=== PATIENT | male | born 1960 | race Caucasian/White ===

== ENCOUNTER 2017-02-10 22:25 | Emergency (ER) | payer MEDICAID ==
[~2017-02-10] VITALS: Ht 177.8 cm; Wt 80.0 kg
[2017-02-10 22:38] VITALS: BP 130/93
== END 2017-02-10 23:25 | disposition home or self-care (01) ==
LOC: ED 23:20
DX: F10.120 Alcohol abuse with intoxication, uncomplicated (principal)
CPT/HCPCS: 99283

== ENCOUNTER 2017-02-19 06:40 | Emergency (ER) | payer MEDICAID ==
[~2017-02-19] VITALS: Ht 175.3 cm; Wt 82.2 kg
[2017-02-19 06:42] VITALS: BP 110/66
== END 2017-02-19 07:30 | disposition home or self-care (01) ==
LOC: ED 07:24
DX: J30.2 Other seasonal allergic rhinitis (principal)
CPT/HCPCS: 99283

== ENCOUNTER 2017-03-09 13:33 | Emergency (ER) | payer MEDICAID ==
[~2017-03-09] VITALS: Ht 175.3 cm; Wt 80.1 kg
[2017-03-09 13:35] VITALS: BP 124/86
== END 2017-03-09 14:04 | disposition home or self-care (01) ==
LOC: ED 13:58
DX: S01.01XD Laceration without foreign body of scalp, subsequent encounter (principal); X58.XXXA Exposure to other specified factors, initial encounter; Y93.89 Activity, other specified; Y92.89 Other specified places as the place of occurrence of the external cause; Y99.8 Other external cause status
CPT/HCPCS: 99281

== ENCOUNTER 2017-06-01 08:15 | Emergency (ER) | payer MEDICAID ==
[~2017-06-01] VITALS: Ht 175.3 cm; Wt 77.5 kg
[2017-06-01 10:29] VITALS: BP 114/73
== END 2017-06-01 10:30 | disposition home or self-care (01) ==
LOC: ED 09:13
DX: M25.552 Pain in left hip (principal)
CPT/HCPCS: 99284

== ENCOUNTER 2017-10-01 13:04 | Emergency (ER) | payer MEDICAID ==
[~2017-10-01] VITALS: Ht 182.9 cm; Wt 108.4 kg
[2017-10-01 21:19] VITALS: BP 94/77
== END 2017-10-01 22:16 | disposition home or self-care (01) ==
LOC: ED 18:01
DX: F10.220 Alcohol dependence with intoxication, uncomplicated (principal); I10 Essential (primary) hypertension
CPT/HCPCS: 99283

== ENCOUNTER 2017-10-25 08:36 | Emergency (ER) | payer MEDICAID ==
[~2017-10-25] VITALS: Ht 175.3 cm; Wt 77.0 kg
[2017-10-25 08:38] VITALS: BP 103/80
== END 2017-10-25 10:45 | disposition home or self-care (01) ==
LOC: ED 09:10
DX: F10.220 Alcohol dependence with intoxication, uncomplicated (principal); I10 Essential (primary) hypertension
CPT/HCPCS: 99283

== ENCOUNTER 2018-11-24 07:57 | Emergency (ER) | payer MEDICAID ==
[~2018-11-24] VITALS: Ht 175.3 cm; Wt 80.0 kg
[2018-11-24 08:09] VITALS: BP 116/80
--- NOTE | 2018-11-24 08:49 | NUR ---
REPORT FROM DUANE BETANCOURT. ASSUMED CARE OF PATIENT AT THIS TIME.
--- NOTE | 2018-11-24 09:05 | NUR ---
Patient/Caregiver given discharge instructions and they have confirmed that they understand the instructions. Patient ambulatory with steady gait. Addendum: 11/24/18 at 0906 by LISETTE Amendment undone in EDM - 11/24/18 at 0914 by LISETTE Patient ambulatory with steady gait with crutches, demonstrates proper crutch use.
== END 2018-11-24 09:08 | disposition home or self-care (01) ==
LOC: ED 09:00
DX: K02.9 Dental caries, unspecified (principal); K04.6 Periapical abscess with sinus; I10 Essential (primary) hypertension
CPT/HCPCS: 41800; 99283

== ENCOUNTER 2019-05-01 14:14 | Emergency (ER) | payer MEDICAID ==
[~2019-05-01] VITALS: Ht 175.3 cm; Wt 82.0 kg
[2019-05-01 14:16] VITALS: BP 103/69
--- NOTE | 2019-05-01 14:57 | NUR ---
R UPPER ARM ABSCESS COVERED WITH GAUZE AND KERLIX DRESSING D/T DRAINAGE. D/C INSTRUCTIONS, MEDS & F/U APPT RV'WD WITH PT, HE VERBALIZES UNDERSTANDING. RX GIVEN X3. INSTRUCTED PT TO RETURN TO ED IF NOT IMPROVING. PT AMBULATED OUT OF ED WITHOUT DIFFICULTY.
== END 2019-05-01 15:01 | disposition home or self-care (01) ==
LOC: ED 14:45
DX: L02.413 Cutaneous abscess of right upper limb (principal); I10 Essential (primary) hypertension
CPT/HCPCS: 99283

== ENCOUNTER 2019-05-02 18:56 | Emergency (ER) | payer MEDICAID ==
[2019-05-02 18:59] VITALS: BP 114/72
--- NOTE | 2019-05-02 19:34 | NUR ---
PT HERE FOR LEFT HAND PAIN WITH CRAMPING. LOCALIZED TO HAND ONLY.
[2019-05-02 20:31] LABS: ALBUMIN 3.1 g/dL (3.4-5.0); ANION GAP 6 mmol/L (5-15); CALCIUM 8.6 mg/dL (8.5-10.1); CHLORIDE 102 mmol/L (98-107); CREATININE 1.13 mg/dL (0.7-1.3)
[2019-05-02 20:58] LABS: BASOPHILS # (AUTO) 0.07 x10^3/uL (0-0.1); BASOPHILS % (AUTO) 1 % (0-1); EOSINOPHILS % (AUTO) 1 % (1-7); LYMPHOCYTES # (AUTO) 1.33 x10^3/uL (1-3.4); LYMPHOCYTES % (AUTO) 18 % (22-44); MD NO; MEAN CORPUSCULAR HEMOGLOBIN 33.2 pg (27.5-34.5); MEAN CORPUSCULAR HGB CONC 34.3 g/dL (33.2-36.2); MEAN CORPUSCULAR VOLUME 96.6 fL (81-97); MEAN PLATELET VOLUME 7.5 fL (7.4-10.4); MONOCYTES # (AUTO) 0.63 x10^3/uL (0.2-0.8); MONOCYTES % (AUTO) 8 % (2-9); NEUTROPHILS % (AUTO) 72 % (42-75); PLATELET COUNT 237 x10^3/uL (130-400); RED BLOOD COUNT 4.36 x10^6/uL (4.38-5.82); RED CELL DISTRIBUTION WIDTH 13.9 % (9.4-14.8)
--- NOTE | 2019-05-02 21:39 | NUR ---
Patient/Caregiver given discharge instructions and they have confirmed that they understand the instructions. Patient ambulatory with steady gait.
== END 2019-05-02 21:41 | disposition home or self-care (01) ==
LOC: ED 21:39
DX: L03.113 Cellulitis of right upper limb (principal); M79.642 Pain in left hand; I10 Essential (primary) hypertension
CPT/HCPCS: 36415; 80048; 82040; 85025; 99284

== ENCOUNTER 2019-06-20 08:00 | Emergency (ER) | payer MEDICAID ==
[~2019-06-20] VITALS: Ht 175.3 cm; Wt 79.0 kg
[2019-06-20 08:16] VITALS: BP 124/88
== END 2019-06-20 09:53 | disposition home or self-care (01) ==
LOC: ED 09:48
DX: K04.7 Periapical abscess without sinus (principal); I10 Essential (primary) hypertension
CPT/HCPCS: 41800; 99283

== ENCOUNTER 2020-01-18 15:00 | Emergency (ER) | payer MEDICAID ==
[~2020-01-18] VITALS: Ht 175.3 cm; Wt 78.0 kg
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
[2020-01-18] MEDS ORDERED: LORazepam 2 MG/ML, 1ML IVPush ONE (16:00)
[2020-01-18] MEDS ORDERED: SODIUM CHLORIDE FLUSH 10ML SYR IVF ONE (16:00)
[2020-01-18] MEDS ORDERED: THIAMINE 100MG TABLET PO ONE (16:00)
[2020-01-18] MEDS ORDERED: LORazepam 2 MG/ML, 1ML ONE (16:17)
--- NOTE | 2020-01-18 16:24 | NUR ---
requested vitamin b from pharmacy.
[2020-01-18 16:38] LABS: ALANINE AMINOTRANSFERASE 84 U/L (12-78); ANION GAP 11 mmol/L (5-15); CALCIUM 8.8 mg/dL (8.5-10.1); CHLORIDE 101 mmol/L (98-107); CREATININE 1.01 mg/dL (0.7-1.3)
[2020-01-18 16:40] LABS: ALKALINE PHOSPHATASE 51 U/L (45-117); BILIRUBIN,TOTAL 1.2 mg/dL (0.2-1.0); TOTAL PROTEIN 7.8 g/dL (6.4-8.2)
[2020-01-18] MEDS ORDERED: SODIUM CHLORIDE 0.9% 1,000ML IVBOLUS ONE (17:00)
[2020-01-18 17:13] LABS: BASOPHILS # (AUTO) 0.02 x10^3/uL (0-0.1); BASOPHILS % (AUTO) 1 % (0-1); EOSINOPHILS # (AUTO) 0.01 x10^3/uL (0-0.4); EOSINOPHILS % (AUTO) 0 % (1-7); LYMPHOCYTES # (AUTO) 0.42 x10^3/uL (1-3.4); LYMPHOCYTES % (AUTO) 9 % (22-44); MD SCAN; MEAN CORPUSCULAR HEMOGLOBIN 31.3 pg (27.5-34.5); MEAN CORPUSCULAR HGB CONC 34.4 g/dL (33.2-36.2); MEAN CORPUSCULAR VOLUME 90.9 fL (81-97); MEAN PLATELET VOLUME 7.6 fL (7.4-10.4); MONOCYTES # (AUTO) 0.43 x10^3/uL (0.2-0.8); MONOCYTES % (AUTO) 9 % (2-9); NEUTROPHILS # (AUTO) 3.84 x10^3/uL (1.8-6.8); NEUTROPHILS % (AUTO) 82 % (42-75); PLATELET COUNT 65 x10^3/uL (130-400); RED CELL DISTRIBUTION WIDTH 16.8 % (9.4-14.8)
[2020-01-18 18:05] VITALS: BP 133/78
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
== END 2020-01-18 18:34 | disposition home or self-care (01) ==
LOC: ED 18:25
DX: R56.9 Unspecified convulsions (principal); F10.20 Alcohol dependence, uncomplicated; I44.4 Left anterior fascicular block; Y90.9 Presence of alcohol in blood, level not specified
CPT/HCPCS: 36415; 70450; 80053; 80307; 85025; 93005; 99285; J7030

== ENCOUNTER 2020-02-02 21:18 | Emergency (ER) | payer MEDICAID ==
[~2020-02-02] VITALS: Ht 175.3 cm; Wt 75.0 kg
[2020-02-02 21:22] VITALS: BP 137/86
== END 2020-02-02 22:34 | disposition left against medical advice (07) ==
LOC: ED 21:40
DX: F10.220 Alcohol dependence with intoxication, uncomplicated (principal); Y90.9 Presence of alcohol in blood, level not specified; I10 Essential (primary) hypertension
CPT/HCPCS: 99283

== ENCOUNTER 2020-02-05 16:10 | Emergency (ER) | payer MEDICAID ==
[~2020-02-05] VITALS: Ht 175.3 cm; Wt 79.5 kg
[2020-02-05 16:18] VITALS: BP 139/94
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
--- NOTE | 2020-02-05 16:41 | NUR ---
ERP WAS IN TO SEE PT. PT AMBULATED TO WITH 2 PERSON ASSIST. PT RESTLESS, CONSTANTLY PULLING AT IV AND MOANING. WARM BLANKETS PROVIDED. RV'WD POC WITH PT, RE-ORIENTED PT. Addendum: 02/05/20 at 1657 by HBENSON PT VOIDED IN TOILET, UNABLE TO COLLECT URINE SPECIMEN.
[2020-02-05 16:50] LABS: BASOPHILS # (AUTO) 0.04 x10^3/uL (0-0.1); BASOPHILS % (AUTO) 1 % (0-1); EOSINOPHILS # (AUTO) 0.05 x10^3/uL (0-0.4); EOSINOPHILS % (AUTO) 1 % (1-7); LYMPHOCYTES # (AUTO) 2.97 x10^3/uL (1-3.4); LYMPHOCYTES % (AUTO) 41 % (22-44); MD NO; MEAN CORPUSCULAR HEMOGLOBIN 31.1 pg (27.5-34.5); MEAN CORPUSCULAR HGB CONC 33.5 g/dL (33.2-36.2); MEAN CORPUSCULAR VOLUME 92.7 fL (81-97); MEAN PLATELET VOLUME 6.8 fL (7.4-10.4); MONOCYTES % (AUTO) 6 % (2-9); NEUTROPHILS # (AUTO) 3.88 x10^3/uL (1.8-6.8); NEUTROPHILS % (AUTO) 53 % (42-75); PLATELET COUNT 323 x10^3/uL (130-400); RED BLOOD COUNT 5.47 x10^6/uL (4.38-5.82); RED CELL DISTRIBUTION WIDTH 16.7 % (9.4-14.8)
[2020-02-05 17:01] LABS: ALANINE AMINOTRANSFERASE 58 U/L (12-78); ALBUMIN 3.7 g/dL (3.4-5.0); ANION GAP 6 mmol/L (5-15); CALCIUM 8.1 mg/dL (8.5-10.1); CHLORIDE 107 mmol/L (98-107); CREATININE 0.86 mg/dL (0.7-1.3)
[2020-02-05 17:05] LABS: ALKALINE PHOSPHATASE 63 U/L (45-117); BILIRUBIN,TOTAL 0.3 mg/dL (0.2-1.0); TOTAL PROTEIN 7.7 g/dL (6.4-8.2)
--- NOTE | 2020-02-05 17:12 | NUR ---
PT RESTING QUIETLY IN [place], BREATHING WNL.
--- NOTE | 2020-02-05 19:00 | NUR ---
PT ABLE TO AMBULATE OUT OF ED, STATES HE WILL GO BACK TO [facility].
== END 2020-02-05 19:40 | disposition home or self-care (01) ==
LOC: ED 16:45
DX: F10.220 Alcohol dependence with intoxication, uncomplicated (principal); R94.31 Abnormal electrocardiogram [ECG] [EKG]; I10 Essential (primary) hypertension; Z98.52 Vasectomy status; Y90.9 Presence of alcohol in blood, level not specified
CPT/HCPCS: 36415; 80053; 80307; 85025; 93005; 99284

== ENCOUNTER 2020-03-12 01:48 | Emergency (ER) | payer MEDICAID ==
[~2020-03-12] VITALS: Ht 175.3 cm; Wt 85.0 kg
[2020-03-12 02:12] VITALS: BP 95/51
--- NOTE | 2020-03-12 02:28 | NUR ---
Patient BIB [facility]; passersby called; patient was found down outside. ALOC. Patient admits to drinking an unknown amount of alcohol.
--- NOTE | 2020-03-12 02:38 | NUR ---
Patient ate sandwich and is now sleeping. Respirations even and unlabored.
--- NOTE | 2020-03-12 03:42 | NUR ---
Patient sleeping in gurney. Respirations even and unlabored.
--- NOTE | 2020-03-12 04:32 | NUR ---
Patient sleeping in gurney. Respirations even and unlabored.
--- NOTE | 2020-03-12 06:33 | NUR ---
Patient awoke and AAOx4, GCS 15. Patient ambulatory with a steady gait.
== END 2020-03-12 06:35 | disposition home or self-care (01) ==
LOC: ED 02:08
DX: F10.129 Alcohol abuse with intoxication, unspecified (principal); I44.0 Atrioventricular block, first degree; R94.31 Abnormal electrocardiogram [ECG] [EKG]; I10 Essential (primary) hypertension; Z90.89 Acquired absence of other organs; Y90.9 Presence of alcohol in blood, level not specified
CPT/HCPCS: 93005; 99283

== ENCOUNTER 2020-04-10 17:25 | Inpatient (IN) | payer MEDICAID ==
[~2020-04-10] VITALS: Ht 175.3 cm; Wt 76.3 kg
--- NOTE | 2020-04-10 18:29 | NUR ---
PT GIVEN BLANKETS. PT ON MONITOR, IV ESTABLISEHD AND IVF STARTED.
[2020-04-10] MEDS ORDERED: SODIUM CHLORIDE 0.9% 1,000ML IVBOLUS ONE (18:30)
[2020-04-10] MEDS ORDERED: SODIUM CHLORIDE FLUSH 10ML SYR IVF ONE (18:30)
[2020-04-10 18:35] LABS: MEAN CORPUSCULAR HEMOGLOBIN 32.2 pg (27.5-34.5); MEAN CORPUSCULAR HGB CONC 33.5 g/dL (33.2-36.2); MEAN CORPUSCULAR VOLUME 96.3 fL (81-97); MEAN PLATELET VOLUME 7.2 fL (7.4-10.4); PLATELET COUNT 111 x10^3/uL (130-400); RED BLOOD COUNT 4.73 x10^6/uL (4.38-5.82); RED CELL DISTRIBUTION WIDTH 14.7 % (9.4-14.8)
[2020-04-10 18:45] LABS: ALBUMIN 3.4 g/dL (3.4-5.0); ANION GAP 11 mmol/L (5-15); CALCIUM 8.9 mg/dL (8.5-10.1); CHLORIDE 98 mmol/L (98-107); CREATININE 0.92 mg/dL (0.7-1.3)
[2020-04-10 19:09] LABS: MD YES
[2020-04-10 19:11] LABS: LYMPH#(MANUAL) 1.31 x10^3/uL (1-3.4); LYMPHS% (MANUAL) 9 % (22-44); MONOS#(MANUAL) 0.73 x10^3/uL (0.3-2.7); MONOS% (MANUAL) 5 % (2-9)
[2020-04-10 19:12] LABS: <RBC MORPHOLOGY> NORMAL
[2020-04-10 19:13] LABS: <PLATELET ESTIMATE> DECREASED; <PLT MORPHOLOGY> NORMAL PLT MORPH; BAND#(MANUAL) 1.45 x10^3/uL; BANDS%(MANUAL) 10 % (0-7); SEGS% (MANUAL) 76 % (42-75)
[2020-04-10] MEDS ORDERED: LIDOCAINE 1%, 10ML INFIL ONE (20:00)
[2020-04-10] MEDS ORDERED: LIDOCAINE-MPF 1%, 5ML ONE ×2 (20:03→20:58)
--- NOTE | 2020-04-10 20:21 | NUR ---
PT RESTING ON BLANCA MEJIA IN PLACE. LAB IN ROOM DRAWING X2 CULTURES AT THIS TIME. PT UPDATED ON POC. WATER PROVIDED.
[2020-04-10] MEDS ORDERED: MORPHINE SULFATE 4 MG/ML, 1ML ONE (20:42)
[2020-04-10] MEDS ORDERED: ONDANSETRON 2MG/ML, 2ML ONE (20:42)
[2020-04-10] MEDS ORDERED: MORPHINE SULFATE 4 MG/ML, 1ML IVPush PRN (21:00)
[2020-04-10] MEDS ORDERED: ONDANSETRON 2MG/ML, 2ML IVPush ONE (21:00)
[2020-04-10] MEDS ORDERED: CEFTRIAXONE PMX 1GM/50ML 50 ML ONE (21:17)
[2020-04-10] MEDS ORDERED: CEFTRIAXONE PMX 1GM/50ML 50 ML IV ONE (21:30)
[2020-04-10] MEDS ORDERED: SODIUM CHLORIDE FLUSH 10ML SYR IVF PRN (22:00)
[2020-04-10] MEDS ORDERED: ONDANSETRON ODT 4 MG PO PRN (23:00)
[2020-04-10] MEDS ORDERED: POLYETHYLENE GLYCOL 17 GM PACKET PO PRN (23:00)
[2020-04-10] MEDS ORDERED: BISACODYL 10 MG SUPP PR PRN (23:00)
--- NOTE | 2020-04-10 23:01 | NUR ---
FIRST ATTEMPT TO CALL REPORT
[2020-04-10] MEDS: AMPICILLIN/SULBACTAM 3 GM in SODIUM CHLORIDE 0.9% 100 ML IV SCH (23:05)
[2020-04-10] MEDS: SODIUM CHLORIDE 0.9% 1,000 ML IV SCH (23:16)
[2020-04-11 00:06] VITALS: BP 127/79
[2020-04-11] MEDS: HEPARIN 5,000 UNITS/ML, 1ML SQ SCH ×3 (00:19→16:08)
[2020-04-11] MEDS: AMPICILLIN/SULBACTAM 3 GM in SODIUM CHLORIDE 0.9% 100 ML IV SCH ×4 (05:23→23:08)
[2020-04-11 06:43] LABS: ANION GAP 11 mmol/L (5-15); CALCIUM 7.8 mg/dL (8.5-10.1); CHLORIDE 100 mmol/L (98-107)
[2020-04-11 06:45] LABS: CREATININE 0.83 mg/dL (0.7-1.3)
[2020-04-11 07:57] LABS: MEAN CORPUSCULAR HEMOGLOBIN 32.2 pg (27.5-34.5); MEAN CORPUSCULAR VOLUME 94.7 fL (81-97); RED BLOOD COUNT 4.32 x10^6/uL (4.38-5.82); RED CELL DISTRIBUTION WIDTH 14.4 % (9.4-14.8)
[2020-04-11 08:01] LABS: MD YES
[2020-04-11 08:02] LABS: BAND#(MANUAL) 1.67 x10^3/uL; BANDS%(MANUAL) 14 % (0-7); LYMPH#(MANUAL) 1.31 x10^3/uL (1-3.4); LYMPHS% (MANUAL) 11 % (22-44); MONOS#(MANUAL) 0.48 x10^3/uL (0.3-2.7); MONOS% (MANUAL) 4 % (2-9); SEG#(MANUAL) 8.45 x10^3/uL (1.8-6.8); SEGS% (MANUAL) 71 % (42-75)
[2020-04-11 08:07] LABS: <PLATELET ESTIMATE> DECREASED; <PLT MORPHOLOGY> NORMAL PLT MORPH; <RBC MORPHOLOGY> NORMAL
[2020-04-11 08:08] LABS: MEAN PLATELET VOLUME 8.2 fL (7.4-10.4); PLATELET COUNT 79 x10^3/uL (130-400)
[2020-04-11 08:11] VITALS: BP 110/71
[2020-04-11] MEDS: SODIUM CHLORIDE 0.9% 1,000 ML IV SCH ×2 (08:14→16:07)
[2020-04-11] MEDS: SENNA/DOCUSATE TABLET PO SCH (08:20)
[2020-04-11] MEDS: POTASSIUM CHLORIDE 20 MEQ TAB.ER.PRT PO SCH ×2 (09:14→17:20)
[2020-04-11 12:37] VITALS: BP 124/75
[2020-04-11 18:54] VITALS: BP 120/68
[2020-04-11] MEDS: OXYcodone IR 5MG TABLET PO PRN (21:42)
[2020-04-12 00:15] VITALS: BP 116/74
[2020-04-12] MEDS: HEPARIN 5,000 UNITS/ML, 1ML SQ SCH ×4 (00:26→23:09)
[2020-04-12] MEDS: SODIUM CHLORIDE 0.9% 1,000 ML IV SCH ×3 (01:16→22:22)
[2020-04-12] MEDS: AMPICILLIN/SULBACTAM 3 GM in SODIUM CHLORIDE 0.9% 100 ML IV SCH ×4 (05:45→23:06)
[2020-04-12 06:19] LABS: ANION GAP 6 mmol/L (5-15); CALCIUM 7.7 mg/dL (8.5-10.1); CHLORIDE 105 mmol/L (98-107); CREATININE 0.76 mg/dL (0.7-1.3)
[2020-04-12 06:25] LABS: MEAN CORPUSCULAR HEMOGLOBIN 32.2 pg (27.5-34.5); MEAN CORPUSCULAR VOLUME 94.7 fL (81-97); MEAN PLATELET VOLUME 7.6 fL (7.4-10.4); PLATELET COUNT 77 x10^3/uL (130-400); RED BLOOD COUNT 3.86 x10^6/uL (4.38-5.82); RED CELL DISTRIBUTION WIDTH 14.1 % (9.4-14.8)
[2020-04-12 06:59] VITALS: BP 129/78
[2020-04-12 07:04] LABS: BASOPHILS # (AUTO) 0.03 x10^3/uL (0-0.1); BASOPHILS % (AUTO) 0 % (0-1); EOSINOPHILS # (AUTO) 0.02 x10^3/uL (0-0.4); EOSINOPHILS % (AUTO) 0 % (1-7); LYMPHOCYTES # (AUTO) 1.11 x10^3/uL (1-3.4); LYMPHOCYTES % (AUTO) 13 % (22-44); MD SCAN; MONOCYTES # (AUTO) 0.51 x10^3/uL (0.2-0.8); MONOCYTES % (AUTO) 6 % (2-9); NEUTROPHILS # (AUTO) 7.12 x10^3/uL (1.8-6.8); NEUTROPHILS % (AUTO) 81 % (42-75)
[2020-04-12] MEDS: SENNA/DOCUSATE TABLET PO SCH (08:11)
[2020-04-12 14:36] VITALS: BP 117/78
[2020-04-12] MEDS ORDERED: GADOTERATE 10 MMOL/20 ML SYR ONE (16:41)
[2020-04-13 02:45] VITALS: BP 123/60
[2020-04-13] MEDS: AMPICILLIN/SULBACTAM 3 GM in SODIUM CHLORIDE 0.9% 100 ML IV SCH ×4 (05:08→23:31)
[2020-04-13 06:16] LABS: BASOPHILS # (AUTO) 0.03 x10^3/uL (0-0.1); BASOPHILS % (AUTO) 0 % (0-1); EOSINOPHILS # (AUTO) 0.07 x10^3/uL (0-0.4); EOSINOPHILS % (AUTO) 1 % (1-7); LYMPHOCYTES # (AUTO) 1.21 x10^3/uL (1-3.4); LYMPHOCYTES % (AUTO) 12 % (22-44); MD NO; MEAN CORPUSCULAR HEMOGLOBIN 31.8 pg (27.5-34.5); MEAN CORPUSCULAR HGB CONC 33.3 g/dL (33.2-36.2); MEAN CORPUSCULAR VOLUME 95.4 fL (81-97); MONOCYTES # (AUTO) 0.82 x10^3/uL (0.2-0.8); MONOCYTES % (AUTO) 8 % (2-9); NEUTROPHILS # (AUTO) 8.14 x10^3/uL (1.8-6.8); NEUTROPHILS % (AUTO) 79 % (42-75); PLATELET COUNT 130 x10^3/uL (130-400); RED CELL DISTRIBUTION WIDTH 14.4 % (9.4-14.8)
[2020-04-13] MEDS: SODIUM CHLORIDE 0.9% 1,000 ML IV SCH (06:27)
[2020-04-13] MEDS ORDERED: POTASSIUM CHLORIDE 20 MEQ TAB.ER.PRT PO ONE (06:30)
[2020-04-13 06:48] VITALS: BP 130/83
[2020-04-13] MEDS: HEPARIN 5,000 UNITS/ML, 1ML SQ SCH ×3 (08:40→23:31)
[2020-04-13] MEDS: SENNA/DOCUSATE TABLET PO SCH (08:40)
[2020-04-13] MEDS ORDERED: CALCIUM CARBONATE 500 MG TAB.CHEW PO SCH (09:00)
[2020-04-13] MEDS: ACETAMINOPHEN 325 MG TABLET PO PRN ×2 (11:22→19:59)
[2020-04-13 12:48] VITALS: BP 119/82
[2020-04-13 19:31] VITALS: BP 130/81
[2020-04-14 01:38] VITALS: BP 112/78
[2020-04-14] MEDS: KETOROLAC 30 MG/1 ML IV PRN ×2 (04:17→19:11)
[2020-04-14] MEDS: AMPICILLIN/SULBACTAM 3 GM in SODIUM CHLORIDE 0.9% 100 ML IV SCH ×4 (05:13→23:05)
[2020-04-14 05:57] LABS: HCT (SEDRATE) 40.6 % (39.2-51.8)
[2020-04-14 06:37] VITALS: BP 114/77
[2020-04-14] MEDS: SENNA/DOCUSATE TABLET PO SCH (08:00)
[2020-04-14] MEDS: HEPARIN 5,000 UNITS/ML, 1ML SQ SCH ×3 (08:00→23:05)
[2020-04-14 12:31] VITALS: BP 110/81
[2020-04-14 20:16] VITALS: BP 101/67
[2020-04-15 01:26] VITALS: BP 105/73
[2020-04-15] MEDS: KETOROLAC 30 MG/1 ML IV PRN ×2 (03:02→11:47)
[2020-04-15] MEDS: AMPICILLIN/SULBACTAM 3 GM in SODIUM CHLORIDE 0.9% 100 ML IV SCH ×4 (05:18→23:06)
[2020-04-15 05:39] LABS: BASOPHILS # (AUTO) 0.06 x10^3/uL (0-0.1); BASOPHILS % (AUTO) 1 % (0-1); EOSINOPHILS # (AUTO) 0.18 x10^3/uL (0-0.4); EOSINOPHILS % (AUTO) 2 % (1-7); LYMPHOCYTES # (AUTO) 1.74 x10^3/uL (1-3.4); LYMPHOCYTES % (AUTO) 23 % (22-44); MD NO; MEAN CORPUSCULAR HEMOGLOBIN 32.2 pg (27.5-34.5); MEAN CORPUSCULAR HGB CONC 33.6 g/dL (33.2-36.2); MEAN CORPUSCULAR VOLUME 95.6 fL (81-97); MEAN PLATELET VOLUME 6.4 fL (7.4-10.4); MONOCYTES # (AUTO) 1.08 x10^3/uL (0.2-0.8); MONOCYTES % (AUTO) 14 % (2-9); NEUTROPHILS # (AUTO) 4.68 x10^3/uL (1.8-6.8); NEUTROPHILS % (AUTO) 60 % (42-75); PLATELET COUNT 274 x10^3/uL (130-400); RED BLOOD COUNT 4.25 x10^6/uL (4.38-5.82); RED CELL DISTRIBUTION WIDTH 14.2 % (9.4-14.8)
[2020-04-15 05:46] LABS: CHLORIDE 106 mmol/L (98-107)
[2020-04-15 05:51] LABS: ALBUMIN 2.3 g/dL (3.4-5.0); ANION GAP 5 mmol/L (5-15); CALCIUM 8.5 mg/dL (8.5-10.1); CREATININE 1.03 mg/dL (0.7-1.3)
[2020-04-15 07:21] VITALS: BP 111/75
[2020-04-15] MEDS: HEPARIN 5,000 UNITS/ML, 1ML SQ SCH ×3 (08:24→23:40)
[2020-04-15] MEDS: SENNA/DOCUSATE TABLET PO SCH (08:25)
[2020-04-15 15:59] VITALS: BP 101/75
[2020-04-15 20:18] VITALS: BP 114/77
[2020-04-15] MEDS: OXYcodone IR 5MG TABLET PO PRN (23:40)
[2020-04-16] MEDS: OXYcodone IR 5MG TABLET PO PRN ×3 (00:26→21:10)
[2020-04-16 01:42] VITALS: BP 108/69
[2020-04-16] MEDS: AMPICILLIN/SULBACTAM 3 GM in SODIUM CHLORIDE 0.9% 100 ML IV SCH ×2 (04:55→10:55)
[2020-04-16] MEDS: ACETAMINOPHEN 325 MG TABLET PO PRN (05:02)
[2020-04-16 06:05] LABS: BASOPHILS # (AUTO) 0.03 x10^3/uL (0-0.1); BASOPHILS % (AUTO) 1 % (0-1); EOSINOPHILS # (AUTO) 0.18 x10^3/uL (0-0.4); EOSINOPHILS % (AUTO) 3 % (1-7); LYMPHOCYTES # (AUTO) 1.84 x10^3/uL (1-3.4); LYMPHOCYTES % (AUTO) 26 % (22-44); MD NO; MEAN CORPUSCULAR HEMOGLOBIN 31.7 pg (27.5-34.5); MEAN CORPUSCULAR HGB CONC 33.5 g/dL (33.2-36.2); MEAN CORPUSCULAR VOLUME 94.6 fL (81-97); MEAN PLATELET VOLUME 6.7 fL (7.4-10.4); MONOCYTES # (AUTO) 1.04 x10^3/uL (0.2-0.8); MONOCYTES % (AUTO) 15 % (2-9); NEUTROPHILS # (AUTO) 3.86 x10^3/uL (1.8-6.8); NEUTROPHILS % (AUTO) 56 % (42-75); PLATELET COUNT 323 x10^3/uL (130-400); RED BLOOD COUNT 3.96 x10^6/uL (4.38-5.82); RED CELL DISTRIBUTION WIDTH 13.8 % (9.4-14.8)
[2020-04-16 06:11] LABS: ALBUMIN 2.3 g/dL (3.4-5.0); ANION GAP 6 mmol/L (5-15); CALCIUM 8.1 mg/dL (8.5-10.1); CHLORIDE 105 mmol/L (98-107)
[2020-04-16 06:12] LABS: CREATININE 0.95 mg/dL (0.7-1.3)
[2020-04-16 07:56] VITALS: BP 113/73
[2020-04-16] MEDS: HEPARIN 5,000 UNITS/ML, 1ML SQ SCH ×2 (08:44→16:29)
[2020-04-16] MEDS: SENNA/DOCUSATE TABLET PO SCH (08:44)
[2020-04-16 14:43] VITALS: BP 114/71
[2020-04-16 21:07] VITALS: BP 115/78
[2020-04-16] MEDS: AMOXICILLIN/CLAV 875-125MG TABLET PO SCH (21:09)
[2020-04-17] MEDS: HEPARIN 5,000 UNITS/ML, 1ML SQ SCH ×2 (00:02→08:00)
[2020-04-17 00:48] VITALS: BP 105/69
[2020-04-17] MEDS: OXYcodone IR 5MG TABLET PO PRN (02:02)
[2020-04-17 06:33] VITALS: BP 102/72
[2020-04-17] MEDS: SENNA/DOCUSATE TABLET PO SCH (09:00)
[2020-04-17] MEDS: AMOXICILLIN/CLAV 875-125MG TABLET PO SCH (09:45)
[2020-04-17] MEDS ORDERED: AMOX1TAB12 PO (10:39)
== END 2020-04-17 12:05 | disposition home or self-care (01) | DRG 872 ==
LOC: ED 18:23 → EDIP 21:58 → 3N 23:43 → DCLOUNGE 04-17 11:45
PROVIDERS: ADMIT Family Medicine; ATTEND Family Medicine
DX: A41.9 Sepsis, unspecified organism (principal); L03.116 Cellulitis of left lower limb; E87.2 Acidosis; D69.6 Thrombocytopenia, unspecified; E87.6 Hypokalemia; M70.42 Prepatellar bursitis, left knee; W19.XXXA Unspecified fall, initial encounter; Z98.52 Vasectomy status; Z59.0 Homelessness
CPT/HCPCS: 36415; 80048; 80069; 82040; 83605; 83735; 85025; 85651; 86140; 87040; 87070; 87147; 87205; 96374; G0378; J0295; J0696; J1644; J1885; J2405; A9575; J2270; J7030

== ENCOUNTER 2020-04-22 21:25 | Emergency (ER) | payer MEDICAID ==
[~2020-04-22] VITALS: Ht 172.7 cm; Wt 70.0 kg
[~2020-04-22 21:25] MED LIST: AMOX1TAB12 PO
--- NOTE | 2020-04-22 21:37 | NUR ---
PT BIB [facility] FOR ETOH INTOXICATION. PT FOUND SLEEPING ON SIDEWALK UNABLE TO AMBULTE. PT HAS NO MEDICAL COMPLAINTS. VSS. PTS O2 SATS 91 ON ROOM AIR. PT PLACED ON 2 L NC. PT HAS NO NEEDS AT THIS TIME. MD AT BEDSIDE. CALL LIGHT IN REACH
--- NOTE | 2020-04-22 22:15 | NUR ---
pt sleeping. even rise and fall of chest observed. vss. call light in reach
--- NOTE | 2020-04-22 22:39 | NUR ---
PT WOKE UP AND DRESSED HIMSELF. AMBULATE PT IN HALWAY. PT AMBULATES WITH A STEADY GAIT. PT REQUESTING TO LEAVE. AWARE. PT GIVEN CAB VOUCHER FOR SAFE DISCHARGE
[2020-04-22 22:41] VITALS: BP 127/81
== END 2020-04-22 22:43 ==
LOC: EDBD → ED 21:35
DX: F10.220 Alcohol dependence with intoxication, uncomplicated (principal); Z72.9 Problem related to lifestyle, unspecified; Y90.9 Presence of alcohol in blood, level not specified
CPT/HCPCS: 99283

== ENCOUNTER 2020-04-24 21:30 | Emergency (ER) | payer SELFPAY ==
[~2020-04-24] VITALS: Ht 180.3 cm; Wt 80.0 kg
[2020-04-24 21:38] VITALS: BP 119/78
--- NOTE | 2020-04-24 21:42 | NUR ---
THIS PT WAS BIB [facility] AFTER [facility] CALLED EMS BECAUSE THE PT WAS UNABLE TO WALK. PER EMS THIS PT HAS A HX OF ETOH ABUSE. CURRENTLY VSS, EYES OPEN, RESPIRATIONS EVEN AND UNLABORED. PT REFUSES TO ANSWER QUESTIONS. RESPONED "NO" WHEN ASKED " ARE YOU HAVING ANY PAIN" TO ERP WHEN HE WAS AT BEDSIDE, BUT WILL NOT ANSWER "WHAT IS YOUR NAME." PT CONTINUES TO SIT UP IN BED, TRYING TO LEAVE.
[2020-04-24] MEDS ORDERED: LIDOCAINE-MPF 1%, 5ML ONE (23:08)
== END 2020-04-25 00:35 | disposition home or self-care (01) ==
LOC: ED 23:50
DX: F10.120 Alcohol abuse with intoxication, uncomplicated (principal); I10 Essential (primary) hypertension; Y90.9 Presence of alcohol in blood, level not specified
CPT/HCPCS: 99283

== ENCOUNTER 2020-05-04 00:46 | Emergency (ER) | payer MEDICAID, OTHER ==
[~2020-05-04] VITALS: Ht 175.3 cm; Wt 75.0 kg
[2020-05-04 00:55] VITALS: BP 138/90
--- NOTE | 2020-05-04 00:58 | NUR ---
THIS IS A 59 YO MALE BIB [facility] FOR ETOH INTOXICATION. PATIENT WAS FOUND SLEEPING ON SIDEWALK, UNABLE TO AMBULATE ON OWN WITHOUT HELP. PER [facility], PATIENT BLEW A 0.306 IN FIELD. A&OX4, PATIENT HAS SLURRED SPEECH BUT SPEAKING IN FULL SENTENCES, DENIES ANY MEDICAL COMPLAINTS. SPO2 MONITOR IN PLACE. CALL LIGHT IN REACH. PATIENT PROVIDED WITH FOOD AND PO FLUIDS
--- NOTE | 2020-05-04 02:00 | NUR ---
PATIENT SLEEPING, RESPIRATIONS EVEN AND UNLABORED, SPO2>90% ON RA. CALL LIGHT IN REACH
--- NOTE | 2020-05-04 02:45 | NUR ---
AMBULATED PATIENT IN HALLWAY, GAIT STEADY
== END 2020-05-04 03:25 | disposition home or self-care (01) ==
LOC: ED 00:56
DX: F10.120 Alcohol abuse with intoxication, uncomplicated (principal); I10 Essential (primary) hypertension; Y90.0 Blood alcohol level of less than 20 mg/100 ml
CPT/HCPCS: 99283

== ENCOUNTER 2020-05-06 07:26 | Emergency (ER) | payer MEDICAID ==
[~2020-05-06] VITALS: Ht 177.8 cm; Wt 68.2 kg
--- NOTE | 2020-05-06 07:29 | NUR ---
Pt BIB [facility]-c/o ETOH intoxication. Pt non-ambulatory, no other complaints. Pt resting in bed, NADN, denies needs.
--- NOTE | 2020-05-06 08:15 | NUR ---
Pt resting in bed with eyes closed, resp even and unlabored, NADN. Pt arousable to this RN calling his name, denies needs.
--- NOTE | 2020-05-06 09:49 | NUR ---
Pt resting in bed with eyes closed, resp even and unlabored, NADN.
[2020-05-06 11:07] VITALS: BP 103/64
--- NOTE | 2020-05-06 11:07 | NUR ---
Pt continues resting in bed with eyes closed, resp even and unlabored, NADN.
--- NOTE | 2020-05-06 11:36 | NUR ---
Pt A&Ox4, watching TV, NADN. Pt able to dress self fully, tie shoes, ambulatory around unit with steady gait.
== END 2020-05-06 11:39 | disposition home or self-care (01) ==
LOC: ED 07:31
DX: F10.220 Alcohol dependence with intoxication, uncomplicated (principal); I10 Essential (primary) hypertension; Y90.9 Presence of alcohol in blood, level not specified
CPT/HCPCS: 99283

== ENCOUNTER 2020-05-08 08:28 | Emergency (ER) | payer MEDICAID ==
[~2020-05-08] VITALS: Ht 175.3 cm; Wt 79.5 kg
[2020-05-08] MEDS ORDERED: LORazepam 1MG TABLET PO ONE (09:00)
[2020-05-08] MEDS ORDERED: THIAMINE 100MG TABLET PO ONE (09:00)
[2020-05-08] MEDS ORDERED: PLEASE ENTER HEIGHT AND WEIGHT MC SCH (09:01)
[2020-05-08] MEDS ORDERED: THIAMINE 100MG TABLET ONE (09:10)
[2020-05-08] MEDS ORDERED: LORazepam 1MG TABLET ONE (09:10)
[2020-05-08 09:13] VITALS: BP 128/86
[2020-05-08 09:59] LABS: ALBUMIN 3.4 g/dL (3.4-5.0); ANION GAP 9 mmol/L (5-15); CALCIUM 7.9 mg/dL (8.5-10.1); CHLORIDE 95 mmol/L (98-107)
[2020-05-08 10:06] LABS: ALANINE AMINOTRANSFERASE 58 U/L (12-78); ALKALINE PHOSPHATASE 67 U/L (45-117); BILIRUBIN,TOTAL 1.8 mg/dL (0.2-1.0); CREATININE 0.85 mg/dL (0.7-1.3); TOTAL PROTEIN 7.5 g/dL (6.4-8.2); TROPONIN I < 0.015 ng/mL (0.000-0.045)
[2020-05-08 11:25] LABS: MEAN CORPUSCULAR HEMOGLOBIN 31.8 pg (27.5-34.5); MEAN CORPUSCULAR HGB CONC 33.9 g/dL (33.2-36.2); MEAN CORPUSCULAR VOLUME 93.9 fL (81-97); MEAN PLATELET VOLUME 8.4 fL (7.4-10.4); RED BLOOD COUNT 4.34 x10^6/uL (4.38-5.82); RED CELL DISTRIBUTION WIDTH 15.3 % (9.4-14.8)
[2020-05-08 11:26] LABS: BASOPHILS # (AUTO) 0.02 x10^3/uL (0-0.1); BASOPHILS % (AUTO) 0 % (0-1); EOSINOPHILS % (AUTO) 0 % (1-7); LYMPHOCYTES # (AUTO) 0.88 x10^3/uL (1-3.4); LYMPHOCYTES % (AUTO) 16 % (22-44); MD SCAN; MONOCYTES % (AUTO) 7 % (2-9); NEUTROPHILS # (AUTO) 4.22 x10^3/uL (1.8-6.8); NEUTROPHILS % (AUTO) 76 % (42-75)
[2020-05-08 11:27] LABS: PLATELET COUNT 44 x10^3/uL (130-400)
== END 2020-05-08 11:14 | disposition home or self-care (01) ==
LOC: ED 09:18
DX: F10.239 Alcohol dependence with withdrawal, unspecified (principal); I45.10 Unspecified right bundle-branch block; Y90.0 Blood alcohol level of less than 20 mg/100 ml; R11.0 Nausea
CPT/HCPCS: 36415; 80053; 83690; 84484; 85025; 93005; 99284

== ENCOUNTER 2020-05-10 12:07 | Emergency (ER) | payer MEDICAID ==
[~2020-05-10] VITALS: Ht 175.3 cm; Wt 74.7 kg
[2020-05-10 12:13] VITALS: BP 97/64
== END 2020-05-10 12:47 | disposition home or self-care (01) ==
LOC: ED 12:35
DX: Z11.59 Encounter for screening for other viral diseases (principal); Z00.00 Encounter for general adult medical examination without abnormal findings
CPT/HCPCS: 36415; 87635; 99283

== ENCOUNTER 2020-05-13 08:03 | Emergency (ER) | payer MEDICAID ==
[~2020-05-13] VITALS: Ht 175.3 cm; Wt 76.7 kg
--- NOTE | 2020-05-13 08:34 | NUR ---
FIRST CONTACT WITH PT. PT C/O LT KNEE SWELLING THAT HAS NOT SUBSIDED SINCE ADMISSION HERE FOR CELLULITIS. PT'S AOX4. RESPS EVEN AND UNLABORED. BP/SPO2 MONITORS IN PLACE. CALL LIGHT WITHIN REACH.
[2020-05-13 08:35] VITALS: BP 102/74
--- NOTE | 2020-05-13 08:55 | NUR ---
Patient given discharge instructions and they have confirmed that they understand the instructions. Patient ambulatory with steady gait.
== END 2020-05-13 08:56 | disposition home or self-care (01) ==
LOC: ED 08:45
DX: L03.114 Cellulitis of left upper limb (principal)
CPT/HCPCS: 99283